=== PATIENT | male | born 1985 | race Hispanic/Latino ===

== ENCOUNTER 2022-12-14 17:24 | Emergency (ER) | payer OTHER ==
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
[2022-12-14 19:30] VITALS: BP 138/82; TEMP 98.1; O2SAT 100
== END 2022-12-14 19:08 | disposition home or self-care (01) ==
LOC: ER 17:24
DX: R51.9 Headache, unspecified (principal); M54.9 Dorsalgia, unspecified; V49.49XA Driver injured in collision with other motor vehicles in traffic accident, initial encounter
CPT/HCPCS: 70450; 73010; 99283